=== PATIENT | female | born 1950 | race Caucasian/White ===

== ENCOUNTER 2016-09-14 19:30 | Emergency (ER) | payer OTHER ==
[2016-09-14 18:28] LABS: BASOPHIL% 0.3 % (0-2.5); EOSINOPHIL# 0.1 X10e3 (0-0.7); EOSINOPHIL% 0.4 % (0.0-7.0); HEMATOCRIT 36.3 % (35.0-45.0); HEMOGLOBIN 11.9 gm/dL (12.0-16.0); LYMPHOCYTE% 11.7 % (17.0-45.0); MEAN CELL VOLUME 84.3 FL (83-96); MEAN CORPUSCULAR HEMOGLOBIN 27.5 PG (28-34); MEAN CORPUSCULAR HGB CONC 32.7 g/dL (30-36); MEAN PLATELET VOLUME 7.4 FL (6.5-11.5); MONOCYTE% 5.6 % (3.0-12.0); NEUTROPHIL# 14.3 X10e3 (1.5-7.1); PLATELET COUNT 96 X10e3 (140-420); RED BLOOD COUNT 4.31 X10e (3.90-5.30); RED CELL DISTRIBUTION WIDTH 16.5 % (11.0-15.5); WHITE BLOOD COUNT 17.4 X10e3 (4.0-10.5)
[2016-09-14 18:29] LABS: DIFF IND YES
[2016-09-14 19:02] LABS: ALBUMIN SERUM 2.8 g/dL (3.5-5.0); BETA HYDROXYBUTYRATE 0.26 MMOL/L (0.02-0.27); BILIRUBIN, DIRECT 0.3 mg/dL (0.0-0.2); BILIRUBIN,INDIRECT 0.6 mg/dL (0.0-0.9); BILIRUBIN,TOTAL 0.9 mg/dL (0.2-2.0); BUN/CREATININE RATIO 17.36; CALCIUM SERUM 8.8 mg/dL (8.4-10.2); CREATININE SERUM 1.9 mg/dL (0.6-1.4); GLOM FILT RATE Estimated 27.6 mL/min (>60); POTASSIUM 4.2 mmol/L (3.5-5.1); PROTEIN TOTAL SERUM 7.7 g/dL (6.0-8.3)
[~2016-09-14 19:30] MED LIST: ALLEGRA60 M1 PO; AMOXICILLIN875 MG PO; BAYER CHEWABLE81 MG; CENTRUM SILVER; HYDROCHLOROTHIA25 MG; JANUMET XR 50-1 EAC1; LIPITOR20 MG; SYNTHROID0.1 MG; ULTRAM PO; VITAMIN E100 UNI2
[2016-09-14 19:36] LABS: PLATELET ESTIMATE NORMAL (NORMAL)
== END 2016-09-14 23:59 | disposition home or self-care (01) ==
LOC: CFTX 19:30
PROVIDERS: Emergency Medicine
DX: Z53.21 Procedure and treatment not carried out due to patient leaving prior to being seen by health care provider (principal)
CPT/HCPCS: 80048; 80076; 82010; 82947; 85025